=== PATIENT | female | born 1955 | race Caucasian/White ===

== ENCOUNTER 2017-01-11 07:31 | Emergency (ER) | payer OTHER ==
[2017-01-11] MEDS ORDERED: KETOROLAC TROMETHAMINE 60 MG/2 ML SDV IM ONE (08:00)
--- NOTE | 2017-01-11 08:02 | ER Document Report ---
ED Neck/Back Problem - General Mode of Arrival: Ambulatory Information source: Patient TRAVEL OUTSIDE OF THE [place] IN LAST 30 DAYS: No - HPI Patient complains to provider of: Pain, Lower back - General Chief Complaint: Back Pain Stated Complaint: BACK INJURY Time Seen by Provider: 01/11/17 07:47 Notes: Patient is a 4 year old female who presents to the ED with complaints of low right sided back pain that is exacerbated by movement and turning. Patient denies sciatica or any fecal or bladder incontinence. Patient states she fell down stairs landing on her back 6 years ago and has degenerative disk disease that causes intermittent flare ups. Patient states she was exercising and doing jumping jacks and the next day woke up in pain. Patient used ice packs and a tens unit to help relieve her pain along with OTC pain medication. (VERONICA CALVO) Past Medical History - General Information source: Patient - Social History Smoking Status: Unknown if Ever Smoked Family History: Reviewed & Not Pertinent Patient has suicidal ideation: No Patient has homicidal ideation: No Renal/ Medical History: Denies: Hx Peritoneal Dialysis Review of Systems - Review of Systems Constitutional: No symptoms reported EENT: No symptoms reported Cardiovascular: No symptoms reported Respiratory: No symptoms reported Gastrointestinal: No symptoms reported. denies: Fecal incontinence Genitourinary: No symptoms reported. denies: Incontinence Female Genitourinary: No symptoms reported Musculoskeletal: See HPI, Back pain Skin: No symptoms reported Hematologic/Lymphatic: No symptoms reported Neurological/Psychological: No symptoms reported Physical Exam - General General appearance: Appears well, Alert In distress: None - HEENT Head: Normocephalic, Atraumatic Eyes: Normal Extraocular movements intact: Yes Pupils: PERRL - Respiratory Respiratory status: No respiratory distress - Cardiovascular Rhythm: Regular - Abdominal Inspection: Normal Distension: No distension Tenderness: Nontender - Back Back: Tender - paralumbar tenderness bilaterally, worse than the right, tender over right sciatica - Extremities General upper extremity: Normal inspection, Normal ROM General lower extremity: Normal inspection, Normal ROM - Neurological Neuro grossly intact: Yes - Psychological Associated symptoms: Normal affect, Normal mood - Skin Skin Temperature: Warm Skin Moisture: Dry Skin Color: Normal Course - Re-evaluation Re-evalutation: 01/11/17 08:02 Patient presents to the emergency department with a chief complaint of paralumbar low back pain which radiates occasionally down into her thigh. She says she has a long-standing history of back problems fell about 6 years ago and was told she had degenerative disc disease or arthritis. She has never any surgical interventions on her back she said her back will give out on her from time to time and she has had episodes of sciatica in the past recently moved to the area states she does not have a new doctor. Denies any loss of bowel or bladder function or injury she said she is trying to lose weight so 5 days ago she started doing jumping jacks morning after that she woke up and was having pain and stiffness in the area she has not fallen no loss of bowel or bladder function on physical examination well-appearing nontoxic no abdominal or flank or urinary complaints pain is paralumbar bilaterally worse on the right and tenderness over the right sciatic area. Negative decreased reflexes or decreased sensation she does have bilateral straight leg raise test when sitting with extension of the leg. She is ambulatory with no vascular or neurological deficits. Going to go ahead and give her a shot of Toradol prescription for steroids for 5 days as well as a muscle relaxer Robaxin. She stated she is new to the area is [place] gave her information to call [facility] to get a primary care physician for follow-up next week and discussed reasons for ED return sooner (VIKKI BEAULIEU) - Vital Signs Vital signs: Temp Pulse Resp BP Pulse Ox 98.4 F 77 16 135/79 H 97 01/11/17 07:35 01/11/17 08:20 01/11/17 08:20 01/11/17 08:20 01/11/17 08:20 Discharge - Discharge Clinical Impression: acute on chronic low back pain Condition: Stable Disposition: HOME, SELF-CARE Instructions: Muscle Strain ([facility]), Low Back Pain ([facility]), Warm Packs ([facility]) Additional Instructions: Low Back Pain Three out of every four people will have an episode of disabling back pain during their lifetime. Most commonly the pain is due to straining of the muscles and ligaments in the low back. Usual treatment includes: (1) Rest on a firm surface. Avoid lying on your stomach. (2) Ice pack the painful area. After a few days, gentle heat may be used intermittently to relax the area, or ice packs can be continued. (3) Medication may be needed -- muscle relaxers and antiinflammatory medicines are commonly used. (4) As the back improves, exercises are prescribed to strengthen the back and abdominal muscles. Your doctor will advise you on the proper care for your back at each stage in your recovery. You may be better in a few days -- or healing may take several weeks. If new symptoms of a "herniated disc" (radiation of pain, numbness, or tingling down the back of the leg or weakness in the leg) occur, you should be re-examined. Further testing may be necessary. We have given you instructions to contact her [facility] hotline to get primary care physician for follow-up next week, and establish a primary care physician return for increasing worsening or new symptoms Prescriptions: Methocarbamol [Robaxin 500 mg Tablet] 500 mg PO BID #12 tablet Prednisone [Deltasone 20 mg Tablet] 3 tab PO DAILY 5 Days Scribe Attestation: 01/11/17 08:09 I personally performed the services described in the documentation reviewed the documentation recorded by my scribe in my presence and it accurately and completely records my words and actions (VIKKI BEAULIEU) Toyaibe Documentation - Scribe Written by Kevin:: kevin Ho, 01/11/2017, 812 acting as scribe for :: Ramana
[2017-01-11 08:21] VITALS: BP 135/79
== END 2017-01-11 08:22 | disposition home or self-care (01) ==
LOC: ER 07:31
DX: M54.5 Low back pain (principal); G89.29 Other chronic pain; M54.9 Dorsalgia, unspecified; M51.36 Other intervertebral disc degeneration, lumbar region; W10.9XXA Fall (on) (from) unspecified stairs and steps, initial encounter
CPT/HCPCS: 99283; 96372; J1885